=== PATIENT | female | born 1965 | race Caucasian/White ===

== ENCOUNTER 2018-06-20 14:34 | Outpatient (CLI) | payer BC ==
[~2018-06-20 14:34] MED LIST: Iopamidol 370 76% 100 ML VIAL ONE
== END 2018-06-20 14:35 | disposition home or self-care (01) ==
LOC: BICCT 14:34
PROVIDERS: ATTEND Internal Medicine Cardiovascular Disease
DX: I71.2 Thoracic aortic aneurysm, without rupture (principal)
CPT/HCPCS: 71275

== ENCOUNTER 2019-10-22 09:13 | Outpatient (CLI) | payer BC ==
--- NOTE | 2019-10-22 10:01 | BD ---
DEXA BONE DENSITY STUDY: Date: 10/22/19 HISTORY: Postmenopausal. FINDINGS: Lumbar Spine: BMD (g/cm2) L1 0.976 T-Score: -0.1 L2 1.062 T-Score: +0.3 L3 1.062 T-Score: -0.2 L4 1.109 T-Score: +0.4 Total 1.055 T-Score: +0.1 Left Femoral Neck: 0.781 T-Score: -0.6 Total Femur: 0.856 T-Score: -0.7 IMPRESSION: Normal bone mineral density of the lumbar spine and left femoral neck. POS: [facility]
== END 2019-10-22 09:14 | disposition home or self-care (01) ==
LOC: BICMAMMO 09:13
PROVIDERS: ATTEND Family Medicine
DX: Z13.820 Encounter for screening for osteoporosis (principal); N95.9 Unspecified menopausal and perimenopausal disorder
CPT/HCPCS: 77080

== ENCOUNTER 2020-07-08 07:30 | Outpatient (CLI) | payer BC ==
--- NOTE | 2020-07-08 10:34 | CT ---
CT ANGIOGRAM THORAX WITH AND WITHOUT IV CONTRAST AND 3-D RECONSTRUCTIONS CLINICAL INDICATION: Nonrheumatic aortic valve insufficiency COMPARISON: 06/20/2018 FINDINGS: Pulmonary arteries: No filling defects are seen in the pulmonary arteries to suggest a pulmonary embo santi. Aorta: The ascending thoracic aorta remains ectatic measuring 4.2 cm in diameter which is stable comp ared to study in 2018. The descending thoracic aorta is normal in caliber. There is no evidence of an aortic dissection. Common origin of the innominate artery and left common carotid artery are prese nt. Great vessels at the aortic arch are patent. Lungs: There is evidence of minimal dependent bibasilar atelectasis. Linear densities are seen at eac h lung base which may represent mild atelectasis versus scarring. No discrete pulmonary nodule, mass, or pleural effusion is identified. Mediastinum: Cardiac silhouette is at the upper limits of normal in size to borderline in enlarged. N o mediastinal lymphadenopathy is seen. Thyroid gland: Normal CT appearance. Osseous structures: No suspicious lytic or sclerotic osseous lesion. Chest wall: A curvilinear metallic density is seen in the right axillary region. This is stable dell red to prior exam and may be related to prior postoperative change. Visualized upper abdomen: Within normal limits for phase of imaging. IMPRESSION: 1. Stable ectasia of the ascending thoracic aorta which measures 4.2 cm in diameter. The descending t horacic aorta is normal in caliber.
[2020-07-08] MEDS ORDERED: Iopamidol-370 76% 500 ML 1 ML ONE (11:24)
== END 2020-07-08 07:31 | disposition home or self-care (01) ==
LOC: BICCT 07:30
PROVIDERS: ATTEND Internal Medicine Cardiovascular Disease
DX: I35.1 Nonrheumatic aortic (valve) insufficiency (principal); I77.810 Thoracic aortic ectasia
CPT/HCPCS: 71275

== ENCOUNTER 2021-12-01 12:13 | Outpatient (CLI) | payer BC | END 2021-12-01 12:14 | disposition home or self-care (01) | LOC: BICMAMMO 12:13 | PROVIDERS: ATTEND Family Medicine | DX: Z12.31 Encounter for screening mammogram for malignant neoplasm of breast (principal); Z80.3 Family history of malignant neoplasm of breast | CPT/HCPCS: 77063; 77067 ==

== ENCOUNTER 2022-07-27 08:37 | Outpatient (CLI) | payer BC | END 2022-07-27 08:38 | disposition home or self-care (01) | LOC: BICRAD 08:37 | PROVIDERS: ATTEND Family Medicine | DX: S16.1XXD Strain of muscle, fascia and tendon at neck level, subsequent encounter (principal); M47.812 Spondylosis without myelopathy or radiculopathy, cervical region | CPT/HCPCS: 72050 ==

== ENCOUNTER 2024-03-17 08:48 | Outpatient (CLI) | payer BC | END 2024-03-17 08:49 | disposition home or self-care (01) | LOC: BICMAMMO 08:48 | PROVIDERS: ATTEND Family Medicine | DX: Z12.31 Encounter for screening mammogram for malignant neoplasm of breast (principal); Z80.3 Family history of malignant neoplasm of breast | CPT/HCPCS: 77063; 77067 ==

== ENCOUNTER 2024-08-26 09:21 | Outpatient (CLI) | payer BC | END 2024-08-26 09:22 | disposition home or self-care (01) | LOC: NM 09:21 | PROVIDERS: ATTEND Psychiatry & Neurology Neurology | DX: G20.C Parkinsonism, unspecified (principal); R90.89 Other abnormal findings on diagnostic imaging of central nervous system | CPT/HCPCS: 78803; A9584 ==